=== PATIENT | male | born 1970 | race Caucasian/White ===

== ENCOUNTER 2023-06-29 19:23 | Observation (INO) | payer SELFPAY ==
[2023-06-29] VITALS (24 sets, daily range): BP systolic 144–174; BP diastolic 74–110; PULSE 73–102; RESP 14–28; TEMP 36.4–37.2; O2SAT 91–100; BMI 23.1; BMI 25.1
[2023-06-29] MEDS: EPINEPHRINE HCL PF 1 MG/ML AMPULE 0.299999999999999989 MG SUBQ (19:30)
[2023-06-29] MEDS: 0.9 % SODIUM CHLORIDE 1,000 ML 1000 ML IV (19:30)
[2023-06-29] MEDS: DIPHENHYDRAMINE HCL 50 MG/ML (1ML) VIAL IV (19:35)
[2023-06-29] MEDS: FAMOTIDINE/PF 20 MG/2 ML VIAL IV ×2 (19:36→20:01)
[2023-06-29] MEDS: METHYLPREDNISOLONE SOD SUCC PF 125 MG/2 ML VIAL IVP (19:37)
[2023-06-29] MEDS: RACEPINEPHRINE HCL 11.25 MG, SODIUM CHLORIDE FOR INHALATION 3 ML IH (19:38)
--- NOTE | 2023-06-29 19:45 | ED_ITS ---
HPI - SOB/Dyspnea General Chief Complaint: Allergic Reaction Stated Complaint: Chest Pain Time Seen by Provider: 06/29/23 19:29 Source: patient and friend Mode of arrival: walk-in History of Present Illness HPI Narrative: This 53-year-old male is brought emergency department by his girlfriend for evaluation of an ALLERGIC reaction. History is obtained from the patient's girlfriend. The patient flew in from [place] this morning. He and his girlfriend went out to dinner at a local restaurant and he had a steak and macaroni and cheese and a vodka Martini. They then went to [facility] for a few minutes and then to [employer]. All in [facility] he started complaining that he was having trouble breathing. His girlfriend and noticed that he had hives. They went home for a little while but he stated that he thought he needed to come to the hospital and she brought him here. On arrival he was noted to be flushed with hives, with respiratory difficulty, stridor and swelling of the tongue. He does not have a history of any known ALLERGIES. He has not been sick prior to the last 5 minutes. Onset (ago): minute(s) (30-45) Related Data Home Medications ?Medication ?Instructions ?Recorded ?Confirmed No Known Home Medications 06/29/23 06/29/23 Allergies Allergy/AdvReac Type Severity Reaction Status Date / Time No Known Drug Allergies Allergy Verified 06/29/23 19:46 Review of Systems ROS Status of ROS 10 or more systems reviewed and unremark able except as noted in history and below Exam Narrative Exam Narrative: Nurses note and vital signs reviewed and patient is not hypoxic. General: Flushed, uncomfortable appearing male with respiratory distress, notable swelling of the lips Skin: Flushed with diffuse hives Head: Normocephalic, atraumatic Eye: Normal conjunctiva, Vision is grossly intact Ears, Nose, Mouth, and Throat: Upper and lower lip swelling, notable tongue swelling, there is no swelling of the posterior pharynx or uvula Neck: supple , stridor is noted Cardiovascular: Regular Rate and Rhythm S1S2, pulses are brisk and equal bilaterally Respiratory: moderate respiratory distress with tachypnea and expiratory wheezing Back: non-tender, no CVA tenderness bilaterally to percussion. GI: Normal bowel sounds, no tenderness to palpation, no masses appreciated. No rebound, guarding, or rigidity noted. Musculoskeletal: The patient has no evidence of calf tenderness, no pitting edema, symmetrical pulses noted bilaterally Neurological: A&O x4, normal speech Psychiatric: Cooperative Constitutional Vital Signs, click to edit/add: Last Vital Signs Temp 97.6 F 06/29/23 19:40 Pulse 89 06/29/23 22:00 Resp 16 06/29/23 22:00 BP 153/76 H 06/29/23 22:00 Pulse Ox 100 06/29/23 22:00 O2 Del Method Room Air 06/29/23 19:40 Course Vital Signs Vital signs: Vital Signs Blood Pressure 155/110 H 06/29/23 19:35 Temperature 97.6 F 06/29/23 19:40 Pulse Rate 89 06/29/23 22:00 Respiratory Rate 16 06/29/23 22:00 Blood Pressure 153/76 H 06/29/23 22:00 Pulse Oximetry 100 06/29/23 22:00 Oxygen Delivery Method Room Air 06/29/23 19:40 MDM - SOB/Dyspnea MDM Narrative Medical decision making narrative: This 53-year-old male with no known ALLERGIES is brought emergency department by his girlfriend for evaluation of acute onset of an ALLERGIC reaction/anaphylaxis. The patient flew in from [place] where he lives to spend 3 weeks with his girlfriend here in [place]. They went out to dinner at [facility] and he had a steak dinner with macaroni and cheese and a lemon martini drink. After that they went to [facility] and then [facility]. While in [facility] he started ddeveloping some chest discomfort then shortness of breath and they went home and he became dyspneic with tongue swelling, lip swelling and a d iffuse rash. She brought him to the emergency department by private vehicle. Upon arrival he was immediately taken to room 6. An IV was established by myself and he was medicated with 0.3 mg of subcutaneous epinephrine, 125 mg IV Solu- Medrol, 50 mg of IV Benadryl and 40 mg of IV Pepcid. He had notable stridor and was given a racemic epinephrine treatment and a DuoNeb treatment due to diffuse wheezing. An EKG done upon arrival with sinus rhythm with a right bundle branch block at 97 bpm. He does live in [place] and there is no prior EKGs for comparison. Routine labs were ordered and he has a normal white count and hemoglobin. The left her electrolytes are normal with the exception of a potassium of 2.9 which was replaced intravenously and a normal troponin. Was continually evaluated and is clinically improving. His rash has resolved. His shortness of breath and wheezing has resolved. He still has some tongue swelling and thickness in the posterior aspect of his throat but states he feels 100 percent better than when he got here. He is not having any drooling. He is tolerating his secretions. He was continually monitored and his lip, tongue and posterior pharyngeal edema has resolved, he is tolerating clear liquids and his voice is now normal. Case was discussed with the hospitalist and he is accepted for admission, observation status. His girlfriend was given Rx for EPi Pen and Medrol dose pack so that she will have it available at the time of discharge. Lab Data Attestation: I reviewed the patient's lab results. Lab results narrative: labs normal with exception of potassium of 2.9 Labs: Lab Results 06/29/23 Range/Units 20:14 WBC 6.8 (4.0-11.0) 10^3/uL RBC 4.63 L (4.70-6.10) 10^6/uL Hgb 13.8 L (14.0-18.0) g/dL Hct 42.0 (42.0-54.0) % MCV 90.7 (80.0-94.0) fL MCH 29.8 (25.9-34.0) pg MCHC 32.9 (29.9-35.2) g/dL RDW 14.8 (11.0-15.0) % Plt Count 215 (150-450) 10^3/uL MPV 9.2 L (9.5-13.5) fL Neut % (Auto) 45.3 (43.0-75.0) % Lymph % (Auto) 41.2 (20.5-60.0) % [place] % (Auto) 11.5 (1.7-12.0) % Eos % (Auto) 1.5 (0.9-7.0) % Baso % (Auto) 0.4 (0.2-2.0) % Neut # (Auto) 3.1 (1.4-6.5) 10^3/uL Lymph # (Auto) 2.8 (1.2-3.8) 10^3/uL [place] # (Auto) 0.8 (0.3-0.8) 10^3/uL Eos # (Auto) 0.1 (0.0-0.7) 10^3/uL Baso # (Auto) 0.0 (0.0-0.1) 10^3/uL Abs Immat Gran (auto) 0.01 (0.00-0.03) 10^3/uL Imm/Tot Granulo (auto) 0.1 (0.0-0.5) % Sodium 140 (136-145) mmol/L Potassium 2.9 L* (3.5-5.1) mmol/L Chloride 105 (98-107) mmol/L Carbon Dioxide 27.0 (21.0-32.0) mmol/L Anion Gap 10.9 BUN 14.0 (7.0-18.0) mg/dL Creatinine 0.84 (0.70-1.30) mg/dL Est GFR ( Amer) >60 (>=60) Est GFR (Non-Af Amer) >60 (>=60) BUN/Creatinine Ratio 16.7 Glucose 153 H (74-106) mg/dL Calcium 7.9 L (8.5-10.1) mg/dL Troponin I High Sens 28.7 (4.0-76.1) pg/mL ECG Data Attestation: I personally reviewed and interpreted this ECG as follows: (Sinus rhythm at 97 beats for minute, right bundle-branch block, left anterior hemiblock, left axis deviation, nonspecific ST changes, no acute ST segment elevation . Repeat EKG sinus rhythm at 90 beats for minute, left axis deviation, right bundle-branch block, left anterior hemiblock, nonspecific S) Critical Care Time Critical Care Time Critical Care Time: Yes Total Critical Care Time: 40 Attestation: . Discharge Plan Discharge Chief Complaint: Allergic Reaction Clinical Impression: Anaphylaxis, Angioedema, Acute hypokalemia Patient Disposition: Admitted as Observation Time of Disposition Decision: 22:20 Condition: Good Prescriptions / Home Meds: No Action No Known Home Medications Print Language: Djiboutian Referrals: Physician,Non-Staff, MD [Primary Care Provider] - 1 week
[2023-06-29] MEDS: IPRATROPIUM/ALBUTEROL SULFATE 3 ML AMPUL.NEB IH (19:48)
--- NOTE | 2023-06-29 19:58 | XR_ITS ---
[facility] [id number] Patient Name: PAYAM VASQUEZ MRN: [id number] date: 1970 Sex: M Assigned Patient Location: ED.MAIN Current Patient Location: ER Accession/Order Number: [id number] Exam Date: 06/29/2023 20:15 Report Date: 06/29/2023 20:46 At the request of: ROSSANA MARKER Procedure: XR chest 1V XR chest 1V 06/29/2023 8:15 PM EDT CLINICAL INDICATION: Shortness of breath COMPARISON: None. TECHNIQUE: Portable semiupright AP view of the chest. FINDINGS: There are no tubes or implants noted. The cardiomediastinal silhouette and pulmonary vasculature are within normal limits. No focal parenchymal opacities. No pneumothorax or pleural effusion. No displaced rib fractures. Osseous structures demonstrate degenerative changes. Air is seen underneath the left hemidiaphragm XR/XR chest 1V IMPRESSION: No acute cardiopulmonary abnormality. Air is seen underneath the left hemidiaphragm, likely related to the splenic flexure however if there is concern for free intraperitoneal air, CT abdomen pelvis can be considered for further evaluation. Electronically authenticated by: GREG BIRCH Date: 06/29/2023 20:46
--- NOTE | 2023-06-29 19:58 | ECG_ITS ---
[facility] Test Date: 2023-06-29 Pat Name: PAYAM VASQUEZ Department: Room: - Gender: Male Family And Divorce Legal Assistant: : 1970 Requested By: [id number] Order Number: [id number] Reading MD: DERRELL SALGADO Measurements Intervals [place] Rate: 97 P: 71 CT: 184 QRS: -89 QRSD: 146 T: 82 QT: 388 QTc: 442 Interpretive Statements 1100 Sinus rhythm 2450 Right bundle branch block 2630 Left anterior fascicular block 5234 Left ventricular hypertrophy with repolarization abnormality 6220 Possible left atrial enlargement 9150 abnormal ECG No previous ECG available for comparison Electronically Signed On 06-30-2023 6:43:41 EDT by DERRELL SALGADO
[2023-06-29 20:24] LABS: Basophils Percent Auto 0.4 % (0.2-2.0); Eosinophils Absolute Auto 0.1 10^3/uL (0.0-0.7); Eosinophils Percent Auto 1.5 % (0.9-7.0); Hemoglobin 13.8 g/dL (14.0-18.0); Immature Granulocytes Abs Auto 0.01 10^3/uL (0.00-0.03); Immature Granulocytes Pct Auto 0.1 % (0.0-0.5); Lymphocytes Absolute Auto 2.8 10^3/uL (1.2-3.8); Lymphocytes Percent Auto 41.2 % (20.5-60.0); Mean Corpuscular HGB Conc 32.9 g/dL (29.9-35.2); Mean Corpuscular Hemoglobin 29.8 pg (25.9-34.0); Mean Corpuscular Volume 90.7 fL (80.0-94.0); Mean Platelet Volume 9.2 fL (9.5-13.5); Monocytes Absolute Auto 0.8 10^3/uL (0.3-0.8); Monocytes Percent Auto 11.5 % (1.7-12.0); Neutrophils Absolute Auto 3.1 10^3/uL (1.4-6.5); Neutrophils Percent Auto 45.3 % (43.0-75.0); Platelet Count 215 10^3/uL (150-450); Red Blood Count 4.63 10^6/uL (4.70-6.10); Red Cell Distribution Width 14.8 % (11.0-15.0); White Blood Count 6.8 10^3/uL (4.0-11.0)
[2023-06-29 20:51] LABS: Anion Gap 10.9; BUN Creatinine Ratio 16.7; Calcium 7.9 mg/dL (8.5-10.1); Chloride 105 mmol/L (98-107); Estimated GFR (African America >60 (>=60); Estimated GFR (Non-African Ame >60 (>=60); Glucose 153 mg/dL (74-106); Sodium 140 mmol/L (136-145); Troponin I High Sensitivity 28.7 pg/mL (4.0-76.1)
[2023-06-29 20:54] LABS: Potassium 2.9 mmol/L (3.5-5.1)
--- NOTE | 2023-06-29 20:59 | ECG_ITS ---
[facility] Test Date: 2023-06-29 Pat Name: PAYMA VASQUEZ Department: Room: - Gender: Male Lisw: : 1970 Requested By: [id number] Order Number: [id number] Reading MD: DERRELL SALGADO Measurements Intervals [place] Rate: 91 P: 41 TN: 168 QRS: -81 QRSD: 154 T: 69 QT: 406 QTc: 454 Interpretive Statements 1100 Sinus rhythm 2450 Right bundle branch block 2630 Left anterior fascicular block 5234 Left ventricular hypertrophy with repolarization abnormality 9150 abnormal ECG Compared to ECG 06/29/2023 19:38:05 No significant changes Electronically Signed On 06-30-2023 6:44:13 EDT by DERRELL SALGADO
[2023-06-29] MEDS: POTASSIUM CHLORIDE IN WATER 10 MEQ/100 ML PIGGYBACK 100 MEQ IV (21:22)
[2023-06-30] VITALS (8 sets, daily range): BP systolic 156; BP diastolic 93; PULSE 53–99; RESP 16; TEMP 37.2; O2SAT 95–98
[2023-06-30] MEDS: ONDANSETRON PF 4 MG/2 ML VIAL IV (00:09)
[2023-06-30] MEDS: 0.9 % SODIUM CHLORIDE 1,000 ML 100 ML IV (00:09)
[2023-06-30] MEDS: ENOXAPARIN SODIUM 40 MG/0.4 ML SYRINGE SUBQ (00:10)
[2023-06-30] MEDS: FAMOTIDINE/PF 20 MG/2 ML VIAL IV ×2 (00:10→08:33)
[2023-06-30] MEDS: DIPHENHYDRAMINE HCL 50 MG/ML (1ML) VIAL 25 MG IV (02:07)
[2023-06-30] MEDS: METHYLPREDNISOLONE SOD SUCC PF 125 MG/2 ML VIAL IVP (03:56)
[2023-06-30] MEDS: PROCHLORPERAZINE 10 MG/2 ML VIAL IV (04:30)
[2023-06-30 05:03] LABS: Basophils Percent Auto 0.1 % (0.2-2.0); Hematocrit 41.9 % (42.0-54.0); Hemoglobin 13.7 g/dL (14.0-18.0); Immature Granulocytes Abs Auto 0.02 10^3/uL (0.00-0.03); Immature Granulocytes Pct Auto 0.3 % (0.0-0.5); Lymphocytes Absolute Auto 0.4 10^3/uL (1.2-3.8); Lymphocytes Percent Auto 5.4 % (20.5-60.0); Mean Corpuscular HGB Conc 32.7 g/dL (29.9-35.2); Mean Corpuscular Hemoglobin 29.2 pg (25.9-34.0); Mean Corpuscular Volume 89.3 fL (80.0-94.0); Mean Platelet Volume 9.1 fL (9.5-13.5); Monocytes Absolute Auto 0.1 10^3/uL (0.3-0.8); Monocytes Percent Auto 0.8 % (1.7-12.0); Neutrophils Absolute Auto 6.7 10^3/uL (1.4-6.5); Neutrophils Percent Auto 93.4 % (43.0-75.0); Platelet Count 204 10^3/uL (150-450); Red Blood Count 4.69 10^6/uL (4.70-6.10); Red Cell Distribution Width 14.7 % (11.0-15.0); White Blood Count 7.2 10^3/uL (4.0-11.0)
[2023-06-30 05:16] LABS: Alanine Aminotransferase 32 U/L (16-63); Albumin Globulin Ratio 0.9; Albumin Level 3.2 g/dL (3.4-5.0); Alkaline Phosphatase 55 U/L (46-116); Anion Gap 13.3; Aspartate Amino Transferase 20 U/L (15-37); BUN Creatinine Ratio 12.6; Bilirubin Total 0.5 mg/dL (0.2-1.0); Calcium 8.9 mg/dL (8.5-10.1); Carbon Dioxide 23.2 mmol/L (21.0-32.0); Chloride 106 mmol/L (98-107); Estimated GFR (African America >60 (>=60); Estimated GFR (Non-African Ame >60 (>=60); Globulin 3.6 g/dL; Glucose 170 mg/dL (74-106); Potassium 4.5 mmol/L (3.5-5.1); Sodium 138 mmol/L (136-145); Total Protein 6.8 g/dL (6.4-8.2)
--- NOTE | 2023-06-30 09:27 | CM.NOTE ---
Patient is a true self pay. Patient would like to speak to financial counselors. Financial counselors were emailed.
--- NOTE | 2023-06-30 09:53 | P.HP_ITS ---
<Statement entered by Nadira Hare DO - 06/30/23 12:31> This documentation has been reviewed and approved. I have also seen and evaluated patient at the time of admission and discharge and agree with the plan for d/c on epi pen and medrol pack. HPI H&P: HPI History of Present Illness Chief complaint: Chest Pain Ahapylaxis angioedema Narrative: 06/30/23 0835 This is a 53 yo male pt with a benign PMHx on no home medications; who presented to the ED yesterday evening with an acute allergic reaction/anaphylaxis. He flew to the area from [place] early this morning to visit his girlfriend for a few weeks. They report going out to dinner, eating steak, pasta with blue cheese, and a vodka martini. They proceeded to [employer] briefly when he began to experience an itchy throat and cough. Onset of these symptoms was approximately 30 min after finishing his meal. He developed hives and wheezing, then became increasingly SOB with swelling of the throat. He presented to the ED emergently. In the ED he was treated with Racemic and subQ epinephrine, benadryl, famotidine, and solumedrol. The Patient's SOB and angioedema significantly improved with these treatments. He also was noted to be hypokalemic and was given IVPB KCL. He was admitted in observation overnight to the hospitalist service to monitor for recurrent anaphylaxis symptoms. At the time of my exam this morning the patient is resting comfortably in bed. He reports complete resolution of all his symptoms including shortness of breath, throat swelling, hives, and pruritus. He denies any previous allergic reaction, and has no known allergy history. He is suspicious that his allergy is from the blue cheese he consumed during dinner but, of course, etiology of his anaphylaxis is unclear at this time. As the patient's symptoms have resolved, he is being discharged home in stable condition. The patient reports he does not have a PCP in [place]. He is encouraged to establish with a PCP as soon as possible, and also to pursue follow-up with an merchandising representative for definitive allergy testing. He is prescribed an EpiPen and Medrol Dosepak at discharge. Opioid HPI Opioid Management Most Recent Opioid Data: Last Pain Assessment 06/30/23 10:15 Last ORT Total Score 0 06/29/23 22:53 Last ORT Risk Category Low Risk 06/29/23 22:53 Review of Systems ROS Status of ROS 10 or more systems reviewed and unremark able except as noted in history and below [facility] Medical History (Updated 06/30/23 @ 12:19 by Delmi Hoff NP) Thumb contusion ?S60.019A - Contusion of unspecified thumb without damage to nail, initial encounter (ICD-10) Hernia ?K46.9 - Unspecified abdominal hernia without obstruction or gangrene (ICD- 10) Abscess, appendix ?K35.33 - Acute appendicitis with perforation, localized peritonitis, and gangrene, with abscess (ICD-10) Surgical History (Updated 06/29/23 @ 23:21 by Zo Colón) H/O vasectomy ?Z98.52 - Vasectomy status (ICD-10) Meds Home Medications and Allergies Home Medications ?Medication ?Instructions ?Recorded ?Confirmed ?Type epinephrine 0.3 mg/0.3 mL 0.3 mg (0.3 mL) IM Q10M PRN 06/30/23 Rx injection, auto-injector (EpiPen) anaphylaxis #2 ea methylprednisolone 4 mg tablets in 4 mg PO DAILY #21 ea 06/30/23 Rx a dose pack (Medrol (Trace)) Allergies Allergy/AdvReac Type Severity Reaction Status Date / Time No Known Drug Allergies Allergy Verified 06/29/23 19:46 Exam Constitutional Vital Signs, click to edit/add: Last Vital Signs Temp 99 F 06/30/23 02:10 Pulse 94 H 06/30/23 08:04 Resp 16 06/30/23 06:00 BP 156/93 H 06/30/23 02:10 Pulse Ox 95 06/30/23 06:00 O2 Del Method Room Air 06/30/23 02:10 Common normals: no apparent distress, oriented x3, alert and well nourished General appearance: cooperative Orientation/consciousness: Yes awake HENMT Common normals: normocephalic, head/scalp atraumatic, hearing grossly normal bilaterally, external nose normal and moist oral mucous membranes Eye Common normals: PERRL, EOMs intact bilaterally, conjunctivae normal and no scleral icterus Alignment: alignment normal Eyelid: eyelids normal Neck & C-Spine Common normals: full ROM, supple and no JVD Chest Common normals: inspection of chest normal Chest: symmetrical chest wall rise Respiratory Common normals: normal respiratory effort, no retractions, no use of accessory muscles and clear to auscultation bilaterally Effort & inspection: able to speak in complete sentences Cardio Common normals: no JVD, regular rate, regular rhythm, S1 normal heart sound, S2 normal heart sound, no gallops, no clicks, no murmurs, no rub and peripheral pulses 2+ throughout GI Common normals: Normal to inspection, nondistended, normoactive bowel sounds present, soft to palpation, non-tender, no hepatosplenomegaly, no masses and no bruits Bladder/kidney exam: bladder normal to palpation Back & Pelvis Common normals: thoracic and lumbar spine normal to inspection Extremity Common normals: normal capillary refill and no pedal edema General: normal exam except as noted; no clubbing and no cyanosis Neuro Sp[place]er Coma Scale: GCS not evaluated Common normals: CN's II-XII intact bilaterally, moves all extremities, no focal motor deficits and no sensory deficits noted Speech: speech normal Motor exam: strength 5/5 throughout Psych Common normals: mental status grossly normal, thought process normal, affect normal and activity/motor behavior normal Results Labs Labs: Short CBC 06/29/23 06/30/23 Range/Units 20:14 04:44 WBC 6.8 7.2 (4.0-11.0) 10^3/uL Hgb 13.8 L 13.7 L (14.0-18.0) g/dL Hct 42.0 41.9 L (42.0-54.0) % Plt Count 215 204 (150-450) 10^3/uL BMP 06/29/23 06/30/23 20:14 04:44 Sodium 140 138 Potassium 2.9 L* 4.5 Chloride 105 106 Carbon Dioxide 27.0 23.2 BUN 14.0 12.0 Creatinine 0.84 0.95 Glucose 153 H 170 H Calcium 7.9 L 8.9 Liver Function 06/30/23 Range/Units 04:44 Total Bilirubin 0.5 (0.2-1.0) mg/dL AST 20 (15-37) U/L ALT 32 (16-63) U/L Alkaline Phosphatase 55 (46-116) U/L Albumin 3.2 L (3.4-5.0) g/dL Pulse Oximetry Attestation: I have reviewed the pertinent pulse oximetry results. Imaging Chest x-ray: Attestation: I have reviewed the pertinent imaging results. Radiologist's impression: IMPRESSION: No acute cardiopulmonary abnormality. Air is seen underneath the left hemidiaphragm, likely related to the splenic flexure however if there is concern for free intraperitoneal air, CT abdomen pelvis can be considered for further evaluation. Assessment and Plan Assessment and Plan (1) Anaphylaxis: Assessment and Plan: Acute * Adm observation * Unclear etiology - blue cheese suspected * No prior allergy or anaphylaxis hx of any kind * Racemic and SubQ epi, IV benadryl, famotidine, solumedrol, IVFs administered in the ED * Complete resolution of symptoms * DC home w/ scrips for epi pen and medrol dosepak Qualifiers: Encounter type: subsequent encounter Qualified Code(s): T78.2XXD - Anaphylactic shock, unspecified, subsequent encounter (2) Angioedema: Assessment and Plan: Acute * See #1 (3) Acute hypokalemia: Assessment and Plan: Acute * Treated w/ 10 mEq KCL in the ED * Resolved on repeat AM labs today
--- NOTE | 2023-06-30 11:55 | CM.NOTE ---
Rounded with Dr. Jono Hare and to be discharged home with no needs. Sent with prescriptions for Epipen and medrol dose brian.
--- NOTE | 2023-07-04 15:18 | CM.DCFOLLOWU ---
1st attempt discharge follow up call, no answer 07/04/23
--- NOTE | 2023-07-05 16:03 | CM.DCFOLLOWU ---
Person spoke with: patient How are you feeling? better, can breathe now! How is your pain? no pain Did you understand your discharge instructions? yes Do you have any questions about your discharge instructions? no Were you given any prescriptions at discharge? yes Were you able to get your prescriptions filled? only 1, did not get epi pen as it was expensive, is going to follow up with this once back in [place]. Advised to come back to ER if any medical issues occur Do you understand how to take your medications as ordered? yes Do you have any questions about your follow up appointment and do you plan to keep your follow up appointment? no questions, is going to find PCP and needle maker in [place] where he lives Is there anything else that you would like to discuss? no Questions/Comments/Concerns/Other: N/A
== END 2023-06-30 10:30 | disposition home or self-care (01) ==
LOC: ER 22:20 → ICU 22:47
PROVIDERS: Nurse Practitioner Acute Care; Admitting Provider Family Medicine; Emergency Provider Emergency Medicine; Visit Provider Family Medicine
DX: T78.2XXA Anaphylactic shock, unspecified, initial encounter (principal); T78.3XXA Angioneurotic edema, initial encounter; E87.6 Hypokalemia; Z98.52 Vasectomy status
CPT/HCPCS: 36415; 71045; 80048; 80053; 84484; 85025; 93005; 94640; 96365; 96372; 96375; 96376; 99285; G0378; J2930